=== PATIENT | female | born 1945 | race Caucasian/White ===

== ENCOUNTER → 2017-11-08 | Outpatient (CLI) | payer OTHER, MEDICARE ==
[2017-11-08 08:44] LABS: ADD MAN DIFF? NO
[2017-11-08 08:47] LABS: BASO # 0.1 x10^3/uL (0.0-0.2); BASO % 3 % (0-3); EOS # 0.6 x10^3/uL (0.0-0.7); EOS % 13 % (0-3); HEMATOCRIT 31.5 % (36.0-47.0); HEMOGLOBIN 10.1 g/dL (12.0-15.5); LYMPH # 1.2 x10^3/uL (1.0-4.8); LYMPH % 24 % (24-48); MEAN CORPUSCULAR HEMOGLOBIN 28 pg (25-35); MEAN CORPUSCULAR HGB CONC 32 g/dL (31-37); MEAN CORPUSCULAR VOLUME 88 fL (79-100); MONO # 0.6 x10^3/uL (0.0-1.1); MONO % 13 % (0-9); NEUT # 2.3 x10^3uL (1.8-7.7); NEUT % 47 % (31-73); PLATELET COUNT 276 x10^3/uL (140-400); RED BLOOD COUNT 3.59 x10^6/uL (3.50-5.40); WHITE BLOOD COUNT 4.9 x10^3/uL (4.0-11.0)
[2017-11-08 08:56] LABS: INR 1.1 (0.8-1.1); PARTIAL THROMBOPLASTIN TIME 27 SEC (24-38); PROTHROMBIN TIME PATIENT 13.6 SEC (11.7-14.0)
[2017-11-08 09:03] LABS: ALBUMIN 3.2 g/dL (3.4-5.0); ANION GAP 5 (6-14); BLOOD UREA NITROGEN 34 mg/dL (7-20); CALCIUM 8.4 mg/dL (8.5-10.1); CARBON DIOXIDE 29 mmol/L (21-32); CHLORIDE 107 mmol/L (98-107); CREATININE 1.2 mg/dL (0.6-1.0); GFR 43.9; GLUCOSE 91 mg/dL (70-99); POTASSIUM 4.7 mmol/L (3.5-5.1); SODIUM 141 mmol/L (136-145)
[2017-11-08 12:02] LABS: BILIRUBIN,URINE NEGATIVE (NEG); CLARITY,URINE CLEAR; COLOR,URINE YELLOW; GLUCOSE,URINE NEGATIVE (NEG); NITRITE,URINE NEGATIVE (NEG); PROTEIN,URINE NEGATIVE (NEG-TRACE)
[2017-11-08 12:08] LABS: BACTERIA,URINE FEW /HPF (0-FEW); RBC,URINE 0 /HPF (0-2); SQUAMOUS EPITHELIAL CELL,UR MOD /LPF; WBC,URINE OCC /HPF (0-4)
[2017-11-09 14:37] LABS: MRSA BY PCR Negative (Negative)
== END | disposition home or self-care (01) ==
LOC: SURGPAT 12:54
DX: Z01.818 Encounter for other preprocedural examination (principal); I10 Essential (primary) hypertension; K44.9 Diaphragmatic hernia without obstruction or gangrene; E78.00 Pure hypercholesterolemia, unspecified; K21.9 Gastro-esophageal reflux disease without esophagitis; E66.9 Obesity, unspecified
CPT/HCPCS: 36415; 71046; 80048; 81001; 82040; 85025; 85610; 85730; 87641; 93005

== ENCOUNTER → 2017-11-16 | Outpatient (CLI) | payer OTHER, MEDICARE | END | disposition home or self-care (01) | LOC: ECHO 13:48 | DX: R94.31 Abnormal electrocardiogram [ECG] [EKG] (principal); I51.7 Cardiomegaly; E78.00 Pure hypercholesterolemia, unspecified; E66.9 Obesity, unspecified; K21.9 Gastro-esophageal reflux disease without esophagitis; Z90.49 Acquired absence of other specified parts of digestive tract | CPT/HCPCS: 93306 ==

== ENCOUNTER 2017-11-22 10:00 | Inpatient (IN) | payer OTHER ==
[~2017-11-22] VITALS: Ht 162.6 cm; Wt 98.9 kg
[~2017-11-22 10:00] MED LIST: AMLO10TA6 PO; ASPI-482 PO; L.AC1CAP6 PO; MELO15TA23 PO; NAPR220T70 PO; OMEP20CA9 PO; OMEP20TA8 PO; OXYB5TAB7 PO; SIME180C9 PO; TRIA1CAP3 PO
[2017-12-17] MEDS ORDERED: LACT1CAP6 PO (07:24)
[2017-12-30] MEDS ORDERED: TRAM50TA PO (14:38)
[2017-12-30] MEDS ORDERED: DICL100G18 TP (14:38)
[2018-01-02] MEDS ORDERED: KETOROLAC 30MG VIAL 30 MG, ROPIVacaine 0.5% PF 60 ML, EPINEPHrine 0.5 MG in IV NORMAL S... IV PRN (20:00)
[2018-01-03] VITALS (8 sets, daily range): BP systolic 118–136; BP diastolic 48–59
[2018-01-03] MEDS ORDERED: ACETAMINOPHEN 500 MG TABLET PO PRN (06:00)
[2018-01-03] MEDS ORDERED: TRANEXAMIC ACID 1,000 MG in IV NS 50ML -- 1ST BAG INJ ONE (06:00)
[2018-01-03] MEDS ORDERED: MELOXICAM 7.5 MG TABLET PO PRN (06:00)
[2018-01-03] MEDS ORDERED: WARF-78 PO (06:40)
[2018-01-03] MEDS ORDERED: OXYB5TAB7 PO (06:45)
[2018-01-03] MEDS ORDERED: LIDOCAINE 1% PF 2 ML VIAL. ID PRN (07:00)
[2018-01-03] MEDS ORDERED: ceFAZolin 2GM PREMIX 2 GM/50 ML BAG IV ONE (07:00)
[2018-01-03] MEDS ORDERED: IV RINGERS,LACTATED 1000ML 1,000 ML IV SCH (07:00)
[2018-01-03] MEDS ORDERED: PROCHLORPERAZINE 10 MG/2 ML VIAL. IV PRN ×2 (07:00→07:45)
[2018-01-03] MEDS ORDERED: fentaNYL PF VIAL 100 MCG/2 ML VIAL IV PRN ×3 (07:00→07:45)
[2018-01-03] MEDS ORDERED: HYDROmorphone 2 MG/ML VIAL IV PRN (07:00)
[2018-01-03] MEDS ORDERED: MORPHINE SULFATE 2 MG/ML VIAL. IV PRN (07:00)
[2018-01-03] MEDS ORDERED: ONDANSETRON PF 4 MG/2 ML VIAL. IV PRN (07:00)
[2018-01-03] MEDS ORDERED: FAMOTIDINE 20 MG/2 ML VIAL ONE (07:13)
[2018-01-03] MEDS ORDERED: PROPOFOL 20 ML IV ONE (07:13)
[2018-01-03] MEDS ORDERED: ROCURONIUM 50 MG/5 ML VIAL. ONE (07:13)
[2018-01-03] MEDS ORDERED: ONDANSETRON PF 4 MG/2 ML VIAL. ONE (07:13)
[2018-01-03] MEDS ORDERED: fentaNYL PF VIAL 100 MCG/2 ML VIAL ONE (07:14)
[2018-01-03 07:18] LABS: PROTHROMBIN TIME PATIENT 14.2 SEC (11.7-14.0)
[2018-01-03] MEDS ORDERED: ZOLPIDEM 5 MG TABLET. PO PRN (07:45)
[2018-01-03] MEDS ORDERED: diphenhydrAMINE 50 MG/ML VIAL IV PRN (07:45)
[2018-01-03] MEDS ORDERED: 0.9 % SODIUM CHLORIDE 10 ML DISP.SYRIN. IV PRN (07:45)
[2018-01-03] MEDS ORDERED: oxyCODONE/APAP 5/325 1 TAB TABLET PO PRN (07:45)
[2018-01-03] MEDS ORDERED: CALCIUM CARBONATE 500 MG TAB.CHEW PO PRN (07:45)
[2018-01-03] MEDS ORDERED: traMADol 50 MG TABLET PO PRN (07:45)
[2018-01-03] MEDS ORDERED: HYDROcodone/APAP 7.5/325MG 1 TAB TABLET PO PRN (07:45)
[2018-01-03] MEDS ORDERED: oxyCODONE/APAP 7.5/325 1 TAB TABLET PO PRN (07:45)
[2018-01-03] MEDS ORDERED: METOCLOPRAMIDE HCL 10 MG/2 ML VIAL. IV PRN (07:45)
[2018-01-03] MEDS ORDERED: DEXTROSE 50% 25 GM / 50ML DISP.SYRIN. IV PRN (07:45)
[2018-01-03] MEDS ORDERED: HYDROcodone/APAP 10/325 1 TAB TABLET PO PRN (07:45)
[2018-01-03] MEDS ORDERED: PROCHLORPERAZINE 5 MG TABLET. PO PRN (07:45)
[2018-01-03] MEDS ORDERED: TRANEXAMIC ACID 1,000 MG in IV NS 50ML -- 2ND BAG INJ ONE (08:00)
[2018-01-03] MEDS: FERROUS SULFATE 325 MG TABLET. PO SCH ×2 (08:00→17:08)
[2018-01-03] MEDS ORDERED: hydrALAZINE 20 MG/ML VIAL. ONE (08:03)
[2018-01-03] MEDS ORDERED: GLYCOPYRROLATE 1 MG/5 ML VIAL. ONE (08:52)
[2018-01-03] MEDS ORDERED: NEOSTIGMINE METHYLSULFATE 5 MG/5 ML SYRINGE. ONE (08:52)
[2018-01-03] MEDS ORDERED: SEVOFLURANE > 120 MINUTES. IH ONE (09:10)
[2018-01-03] MEDS ORDERED: DEXAMETHASONE SOD PHOS 20 MG/5 ML VIAL. ONE (09:10)
[2018-01-03] MEDS: fentaNYL PF VIAL 100 MCG/2 ML VIAL IV PRN ×4 (09:50→10:26)
--- NOTE | 2018-01-03 10:12 | PDOC4 ---
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 Tourniquet time: 49 minutes Blood loss: 200 mL Competitions: None Findings: Advanced primary degenerative joint disease of left knee Components inserted: Cifuentes and nephew cobalt chrome femur, size 6, size 4 tibial baseplate, 9 mm thick constrained articular insert, 23 mm biconvex patella Reason for procedure: Patient is a very pleasant 72-year-old female right seen and evaluated in my outpatient orthopedic surgery clinic. Clinical radiographic examination were consistent with the above preoperative diagnosis and after discussion of the risks, benefits, and alternatives she elected proceed with surgery considering she had failed conservative therapies including strengthening, exercise, intra-articular injections. Description of procedure: Patient was greeted in the preoperative area by myself for the correct extremity was verified and marked. She was taken to the operative suite and antibiotics were started as she was brought back. Once in the operating room, transferred gently supine to the operating room table and had successful induction of a general anesthetic. She was secured to bed with all pressure points padded. We attached a nonsterile tourniquet and taped in place after conducted my examination under anesthesia which demonstrated range of motion from 3 to 90. We then attached a padded bump laterally at her hip and a padded foot rest to help maintain her leg at 90 passively. We then proceeded prep and drape left lower extremity in our usual sterile fashion including an Ioban Hammond. At this point I palpated and marked surface anatomy and ashley a line from my standard anterior midline skin incision. Extremity was exsanguinated with an Esmarch and tourniquet insufflated to 250 mmHg. I incised skin with a scalpel and dissected down to the extensor mechanism with electrocautery, identifying the quadriceps tendon, borders of the patellar tendon and patella. I then made my standard medial parapatellar arthrotomy and then performed my medial release with combination of Gallardo and electrocautery. After this, I bluntly dissected the fat pad off of the posterior aspect of the patellar tendon and protected this with an [place] while excised the fat pad. I then flexed the knee and took down her PCL and remnants of her ACL. I then gained entry to her distal femur with the drill and placed my long intramedullary guide and then pinned my distal femoral cutting block at the +2 position and made my distal femoral cut removing loose bony pieces. After this, removed this guide, size my for my femur and impacted this block into position referencing the Whitesides line and epicondylar axis. I then made my distal femoral cuts and delivered the bony pieces from the operative field and she had osteophytes posteriorly at her medial femoral condyle and I took care to take these down. I then used my extra medullary tibial cutting guide and pinned this into place and then made my proximal tibial cut, delivering the bony remnant was circumferentially electrocautery. I removed a couple loose bony pieces posteriorly. I then sized and pinned in place my size 4 tibial component and drilled and punched for the fins. I then placed my trial femoral component and reamed and punched for the cam portion. I then trialed the standard polyethylene 9 mm thick, she had full range of motion but I was not happy with her stability and therefore I went with the constrained poly-. I inspected her collaterals which were protected posterior retractors throughout this and these were intact. After this, I directed my attention to the constrained articular insert, she had full range of motion, 0- 140 and a knee that was stable to varus and valgus in extension and mid flexion. At this point I directed my attention to the patella and sized and reamed for a 23 biconvex patella. Her patella had excellent tracking. I then removed all trial components and thoroughly irrigated the bony surfaces and then proceeded to cement in place my tibial component followed by my femoral component and placed the trial polyethylene in between these, cement was allowed to polymerize with the leg in extension. The patellar button was secured and clamped in place with cement as well. After cement hardened I tested range of motion stability again and was happy with the 9 constrained, I removed the trial and then irrigated the operative field out again and made sure I didn't leave any cement behind. I then placed the polyethylene articular insert and ensure that it fully engaged. We then let tourniquet down and I cauterized couple bleeders. Prior to letting tourniquet down, I injected my periarticular mixture into the octaviano-incisional soft tissue envelope. I placed a 1/8 inch Hemovac exiting superolaterally from her knee. I then closed arthrotomy with simple interrupted #1 Vicryl with the exception of a figure-of- eight proximally. After this, inverted interrupted 20 in a multilayered fashion was used to close subcutaneous tissue followed by running 4-0 Monocryl in a subarticular fashion for skin. The leg was cleansed and dried and our cris wound dressing was applied. A soft wrap was then applied to her left lower extremity. After this, she is awake from anesthesia and transferred gently supine to the recovery room cart and taken to PACU in a stable and extubated condition. Postoperative plan is to admit her to the joint center for DVT and antibiotic prophylaxis. She will likely receive IV pain medicine. She will begin a rehabilitation. All counts were correct 2 prior to wound closure. No complications. GOOD CRUZ II, MD Jan 03, 2018 10:12
--- NOTE | 2018-01-03 10:39 | RAD ---
KNEE LEFT 2V History: POST OP LT KNEE REPLACEMENT Comparison: None. Findings: 2 views of the left knee are submitted. There is left total knee arthroplasty. There is drain in the soft tissues. Impression: 1. There is left total knee arthroplasty. Electronically signed by: Hunter Lamar MD (01/03/2018 10:36 AM) [facility]
[2018-01-03] MEDS: traMADol 50 MG TABLET PO PRN ×3 (13:13→20:30)
[2018-01-03] MEDS ORDERED: WARFARIN 7.5 MG TABLET. PO ONE (16:00)
[2018-01-03] MEDS: IV DEXTROSE 5 %-0.45 % NACL 1,000 ML IV SCH (17:08)
[2018-01-03] MEDS: CELECOXIB 100 MG CAPSULE. PO SCH (20:30)
[2018-01-03] MEDS: OXYBUTYNIN CHLORIDE 5 MG TABLET PO SCH (20:30)
[2018-01-03] MEDS ORDERED: INFLUENZA VAX SCREEN BY RX. MC ONE (21:00)
[2018-01-04] MEDS: traMADol 50 MG TABLET PO PRN ×5 (00:22→21:46)
[2018-01-04] MEDS: IV DEXTROSE 5 %-0.45 % NACL 1,000 ML IV SCH (00:24)
[2018-01-04 03:00] VITALS: BP 148/79
[2018-01-04 06:00] VITALS: BP 160/65
[2018-01-04] MEDS ORDERED: MAGNESIUM HYDROXIDE 2,400 MG/30 ML ORAL.SUSP. PO PRN (06:00)
[2018-01-04] MEDS: PANTOPRAZOLE 40 MG TABLET.DR. PO SCH (06:15)
[2018-01-04 07:30] LABS: HEMATOCRIT 28.3 % (36.0-47.0)
[2018-01-04 07:45] LABS: PROTHROMBIN TIME PATIENT 20.9 SEC (11.7-14.0)
[2018-01-04] MEDS: MULTIVITAMIN with MINERAL TABLET. PO SCH (08:54)
[2018-01-04] MEDS: CELECOXIB 100 MG CAPSULE. PO SCH ×2 (08:54→21:45)
[2018-01-04] MEDS: SENNOSIDES/DOCUSATE 8.6/50MG TABLET. PO SCH (08:54)
[2018-01-04] MEDS: OXYBUTYNIN CHLORIDE 5 MG TABLET PO SCH ×2 (08:55→21:45)
[2018-01-04] MEDS: SIMETHICONE 80 MG TAB.CHEW PO SCH (08:55)
[2018-01-04] MEDS: FERROUS SULFATE 325 MG TABLET. PO SCH ×2 (08:55→16:49)
[2018-01-04] MEDS: amLODIPine BESYLATE 10 MG TABLET PO SCH (08:57)
[2018-01-04] MEDS: TRIAMTERENE/HCTZ 37.5/25MG TABLET. PO SCH (08:57)
[2018-01-04 08:59] VITALS: BP 132/65
--- NOTE | 2018-01-04 09:22 | PDOC ---
ORTHO PROGRESS NOTES Subjective Her pain is tolerable. She is already asking about timing of her contralateral knee replacement. She denies any femoral sensation in her foot. Vitals Vital Signs Date Time Temp Pulse Resp B/P (MAP) Pulse Ox O2 Delivery O2 Flow Rate FiO2 01/04/18 08:59 73 20 132/65 (87) Room Air 01/04/18 07:00 95 01/04/18 06:00 98.1 98.1 01/04/18 00:22 2.0 Labs Laboratory Tests Test 01/03/18 06:35 01/04/18 07:10 Erythrocyte Sedimentation Rate 15 (0-25) Prothrombin Time 14.2 SEC (11.7-14.0) 20.9 SEC (11.7-14.0) Prothromb Time International Ratio 1.2 (0.8-1.1) 1.9 (0.8-1.1) Activated Partial Thromboplast Time 29 SEC (24-38) Hemoglobin 9.0 g/dL (12.0-15.5) Hematocrit 28.3 % (36.0-47.0) Mean Corpuscular Hemoglobin Concent 32 g/dL (31-37) Laboratory Tests Test 01/04/18 07:10 Hemoglobin 9.0 g/dL (12.0-15.5) Hematocrit 28.3 % (36.0-47.0) Mean Corpuscular Hemoglobin Concent 32 g/dL (31-37) Prothrombin Time 20.9 SEC (11.7-14.0) Prothromb Time International Ratio 1.9 (0.8-1.1) Notes She is awake and alert. Dressing is intact, minimal output from drain. Normal motor and sensation distally. Toes have good capillary refill. Assessment and Plan PT and OT today. I did discuss with her that given the amount of soft tissue work, I would prefer no flexion past 90. We will see how she progresses. Coumadin again today. VARUN CRUZ II, MD Jan 04, 2018 09:22
[2018-01-04] MEDS ORDERED: BISACODYL 10 MG SUPP.RECT. PR PRN (16:00)
[2018-01-04] MEDS ORDERED: WARFARIN 3 MG TABLET. PO ONE (16:00)
[2018-01-04 18:18] VITALS: BP 134/53
[2018-01-05] MEDS: traMADol 50 MG TABLET PO PRN ×5 (01:17→20:04)
[2018-01-05 05:37] VITALS: BP 147/62
[2018-01-05] MEDS: PANTOPRAZOLE 40 MG TABLET.DR. PO SCH (06:10)
[2018-01-05 06:57] LABS: HEMATOCRIT 28.4 % (36.0-47.0); HEMOGLOBIN 9.2 g/dL (12.0-15.5)
[2018-01-05 07:14] LABS: PROTHROMBIN TIME PATIENT 34.1 SEC (11.7-14.0)
--- NOTE | 2018-01-05 07:23 | PDOC ---
ORTHO PROGRESS NOTES Subjective Patient with no new complaints this morning. Post-op Day: 2 Procedure L TKA Vitals Vital Signs Date Time Temp Pulse Resp B/P (MAP) Pulse Ox O2 Delivery O2 Flow Rate FiO2 01/05/18 07:04 18 92 Room Air 01/05/18 05:37 99.1 67 147/62 (90) 99.1 Labs Laboratory Tests Test 01/04/18 07:10 01/05/18 06:30 Hemoglobin 9.0 g/dL (12.0-15.5) 9.2 g/dL (12.0-15.5) Hematocrit 28.3 % (36.0-47.0) 28.4 % (36.0-47.0) Mean Corpuscular Hemoglobin Concent 32 g/dL (31-37) 33 g/dL (31-37) Prothrombin Time 20.9 SEC (11.7-14.0) Prothromb Time International Ratio 1.9 (0.8-1.1) Laboratory Tests Test 01/05/18 06:30 Hemoglobin 9.2 g/dL (12.0-15.5) Hematocrit 28.4 % (36.0-47.0) Mean Corpuscular Hemoglobin Concent 33 g/dL (31-37) Assessment and Plan N/V intact distally dressing dry and intact continue PT LYNETTE QUEEN APRN Jan 05, 2018 07:23
[2018-01-05] MEDS: SIMETHICONE 80 MG TAB.CHEW PO SCH ×2 (08:00→08:42)
[2018-01-05] MEDS: MULTIVITAMIN with MINERAL TABLET. PO SCH (08:42)
[2018-01-05] MEDS: CELECOXIB 100 MG CAPSULE. PO SCH ×2 (08:42→20:41)
[2018-01-05] MEDS: SENNOSIDES/DOCUSATE 8.6/50MG TABLET. PO SCH (08:43)
[2018-01-05] MEDS: FERROUS SULFATE 325 MG TABLET. PO SCH ×2 (08:43→17:03)
[2018-01-05] MEDS: OXYBUTYNIN CHLORIDE 5 MG TABLET PO SCH ×2 (08:43→20:41)
[2018-01-05] MEDS: TRIAMTERENE/HCTZ 37.5/25MG TABLET. PO SCH (08:46)
[2018-01-05] MEDS: amLODIPine BESYLATE 10 MG TABLET PO SCH (08:46)
[2018-01-05] MEDS: ACETAMINOPHEN 325 MG TABLET. PO PRN ×2 (09:06→12:27)
[2018-01-05 18:30] VITALS: BP 138/59
[2018-01-06] MEDS: traMADol 50 MG TABLET PO PRN ×3 (02:16→12:09)
[2018-01-06 04:33] LABS: HEMATOCRIT 26.6 % (36.0-47.0); HEMOGLOBIN 8.7 g/dL (12.0-15.5)
[2018-01-06 04:40] LABS: PROTHROMBIN TIME PATIENT 33.2 SEC (11.7-14.0)
[2018-01-06 06:00] VITALS: BP 149/74
[2018-01-06] MEDS: PANTOPRAZOLE 40 MG TABLET.DR. PO SCH (06:53)
[2018-01-06] MEDS ORDERED: POLYETHYLENE GLYCOL 3350 17 GM PACKET. PO PRN (07:45)
--- NOTE | 2018-01-06 07:57 | DISCH ---
DISCHARGE INSTRUCTIONS Condition on Discharge Condition on Discharge: Stable Activity After Discharge Activity Instructions for Disc: Activity as tolerated Bathing Instructions: Shower-keep dressing dry Weight Bearing Status after Di: As tolerated Diet after Discharge Diet after Discharge: Regular Wound Incision Care Wound/Incision Care: Ice to area for comfort, Keep wound/cast CDI, Change dressing, Do not change dressing Other wound/incision instructi: leave dressing in place Contacting the DR. after DC Call your doctor for: Concerns you may have Follow-Up Follow up with: Juan Daniel in 2k VARUN CRUZ II, MD Jan 06, 2018 07:57
[2018-01-06 08:01] VITALS: BP 131/67
[2018-01-06] MEDS: FERROUS SULFATE 325 MG TABLET. PO SCH (08:04)
[2018-01-06] MEDS: CELECOXIB 100 MG CAPSULE. PO SCH (08:04)
[2018-01-06 08:05] VITALS: BP 131/67
[2018-01-06] MEDS: SENNOSIDES/DOCUSATE 8.6/50MG TABLET. PO SCH (08:05)
[2018-01-06] MEDS: amLODIPine BESYLATE 10 MG TABLET PO SCH (08:05)
[2018-01-06] MEDS: MULTIVITAMIN with MINERAL TABLET. PO SCH (08:05)
[2018-01-06] MEDS: OXYBUTYNIN CHLORIDE 5 MG TABLET PO SCH (08:05)
[2018-01-06] MEDS: TRIAMTERENE/HCTZ 37.5/25MG TABLET. PO SCH (08:05)
[2018-01-06] MEDS: SIMETHICONE 80 MG TAB.CHEW PO SCH (08:08)
--- NOTE | 2018-01-06 08:08 | PDOC ---
ORTHO PROGRESS NOTES Subjective Making progress with PT/OT pain controlled some abd fullness, +flatus, no N/V Vitals Vital Signs Date Time Temp Pulse Resp B/P (MAP) Pulse Ox O2 Delivery O2 Flow Rate FiO2 01/06/18 08:01 98.4 66 18 131/67 (88) 94 Room Air 98.4 Labs Laboratory Tests Test 01/05/18 06:30 01/06/18 04:05 Hemoglobin 9.2 g/dL (12.0-15.5) 8.7 g/dL (12.0-15.5) Hematocrit 28.4 % (36.0-47.0) 26.6 % (36.0-47.0) Mean Corpuscular Hemoglobin Concent 33 g/dL (31-37) 33 g/dL (31-37) Prothrombin Time 34.1 SEC (11.7-14.0) 33.2 SEC (11.7-14.0) Prothromb Time International Ratio 3.5 (0.8-1.1) 3.4 (0.8-1.1) Laboratory Tests Test 01/06/18 04:05 Hemoglobin 8.7 g/dL (12.0-15.5) Hematocrit 26.6 % (36.0-47.0) Mean Corpuscular Hemoglobin Concent 33 g/dL (31-37) Prothrombin Time 33.2 SEC (11.7-14.0) Prothromb Time International Ratio 3.4 (0.8-1.1) Notes A and A incision/dressing c/d/i remains NVI LLE Assessment and Plan home today, outpatient PT Coumadin, WBAT VARUN CRUZ II, MD Jan 06, 2018 08:08
--- NOTE | 2018-01-06 09:13 | PATHOLOGY ---
[facility] Accession Number: [id number] . 01 Material submitted: . LEFT KNEE TISSUE . 01 Clinician provided ICD-10: M17.12 . 01 Clinical history: . L knee OA, DJD . 02 Diagnosis: "Left knee tissue", total knee arthroplasty/joint resection: - Decalcified bone and articular cartilage with degenerative joint disease. - Synovium with reactive synovial hyperplasia. - Bone marrow with trilineage hematopoiesis. . (CLW:vjm;01/05/2018) AGA/01/06/2018 . 02 Electronically signed: . Karen Hearn MD, Pathologist NPI- [id number] . 01 Gross description: . The specimen is received in formalin, labeled "Joan Ornelas, left knee tissue" and consists of multiple fragments of bone including the tibial plateau and yellow soft tissue measuring 11.3 x 9.5 x 2.4 cm. Also present is a segment of prieto-brown and papillary soft tissue attached to bone which measures 3.0 x 1.8 cm. No meniscus is grossly identified and the articular surfaces show extensive eburnation measuring up to 3.0 cm. There are also multiple osteophytes present measuring up to 1.8 cm. Smasher sections are submitted as follows: . A1: Soft tissue A2: Eburnation and osteophyte following decalcification (SDY; 01/03/2018) SYU/SYU . 02 Pathologist provided ICD-10: M17.12, M67.262 . 02 CPT . 500021, 047888 Specimen Comment: A courtesy copy of this report has been sent to Specimen Comment: [phone], . Specimen Comment: Report sent to / DR EVANS Performed at: 01 [facility] [address] [id number] MD Tom Osman MD Phone: [phone] Performed at: 02 [facility] [address] [id number] MD Slade Osorio MD Phone: [phone]
--- NOTE | 2018-01-06 09:55 | PDOC3 ---
Discharge Summary Visit Information Date of Admission: Jan 03, 2018 Date of Discharge: Jan 06, 2018 Admitting Diagnosis: advanced left primary degenerative joint disease of knee Brief Hospital Course Allergies Allergies Coded Allergies Type Severity Reaction Last Updated Verified morphine Allergy Severe Shortness of Air 12/17/17 Yes latex Allergy Intermediate Rash 12/17/17 Yes nickel Adverse Reaction Intermediate Rash 12/17/17 Yes simvastatin Adverse Reaction Intermediate 12/17/17 Yes Vital Signs Vital Signs Date Time Temp Pulse Resp B/P (MAP) Pulse Ox O2 Delivery O2 Flow Rate FiO2 01/06/18 08:06 18 01/06/18 08:05 66 131/67 01/06/18 08:01 98.4 94 Room Air 98.4 Lab Results Laboratory Tests Test 01/05/18 06:30 01/06/18 04:05 Hemoglobin 9.2 g/dL (12.0-15.5) 8.7 g/dL (12.0-15.5) Hematocrit 28.4 % (36.0-47.0) 26.6 % (36.0-47.0) Mean Corpuscular Hemoglobin Concent 33 g/dL (31-37) 33 g/dL (31-37) Prothrombin Time 34.1 SEC (11.7-14.0) 33.2 SEC (11.7-14.0) Prothromb Time International Ratio 3.5 (0.8-1.1) 3.4 (0.8-1.1) Laboratory Tests Test 01/06/18 04:05 Hemoglobin 8.7 g/dL (12.0-15.5) Hematocrit 26.6 % (36.0-47.0) Mean Corpuscular Hemoglobin Concent 33 g/dL (31-37) Prothrombin Time 33.2 SEC (11.7-14.0) Prothromb Time International Ratio 3.4 (0.8-1.1) Brief Hospital Course Ms. Ornelas is a 72 old female who presented to my outpatient orthopedic surgery clinic with complaints of severe and progressive pain that failed conservative therapies including injections. We had a discussion of the risks, benefits, alternatives to total knee arthroplasty and she elected to proceed. She tolerated surgery well and recovered well from anesthesia in the PACU. She was then taken to the joint Center for care and observation. She did receive PT , OT, DVT and antibiotic prophylaxis. She recovered well from surgery and remained hemodynamically stable and afebrile throughout the hospitalization. Pain was controlled on oral pain medicine at the time of discharge. Good progress was made with therapy throughout the hospitalization, and activities of daily living were accomplished by the patient. The incision was clean dry and intact and the operative extremity had normal motor and sensation. She was having normal bowel and bladder function at the time of discharge. Discharge Information Condition at Discharge: Stable Follow Up: Weeks Disposition/Orders: D/C to Home Scheduled Amlodipine Besylate (Amlodipine Besylate) 10 Mg Tablet, 10 MG PO DAILY08 for blood pressure, (Reported) Entered as Reported by: EDYTA WRIGHT on 11/05/151724 Last Taken: Unknown Dose on 01/03/180 Last Action: Continued on 742 by GARRY CRUZ MD Meloxicam (Meloxicam) 15 Mg Tablet, 1 TAB PO DAILY08 for arthritis pain, #30 Ref 2 (Reported) Entered as Reported by: EDYTA WRIGHT on 11/05/151724 Last Taken: Unknown Dose on 01/03/18299 Last Action: HELD on 01/03/18742 by GARRY CRUZ MD Omeprazole (Omeprazole) 20 Mg Tablet.dr, 20 MG PO DAILY for stomach acid, ( Reported) Entered as Reported by: DARINEL MOSER on 11/08/17 1448 Last Taken: Unknown Dose on 01/03/18299 Last Action: Converted on 43 by GARRY CRUZ MD Oxybutynin Chloride (Oxybutynin Chloride) 5 Mg Tablet, 10 MG PO HS for frequency , (Reported) Entered as Reported by: EDYTA WRIGHT on 11/05/151724 Last Taken: Unknown Dose on 01/03/18 0300 Last Action: Continued on 742 by GARRY CRUZ MD Oxybutynin Chloride (Oxybutynin Chloride) 5 Mg Tablet, 1 TAB PO DAILY08 for frequency, #60 Ref 11 (Reported) Entered as Reported by: DUY BOO on 01/03/18 0645 Last Taken: Unknown Dose on 01/02/18 0800 Last Action: Continued on 742 by GARRY CRUZ MD Simethicone (Phazyme) 180 Mg Capsule, 180 MG PO DAILY08 for heartburn, (Reported ) Entered as Reported by: EDYTA WRIGHT on 11/05/15 1725 Last Taken: Unknown Dose on 01/02/18 Last Action: Converted on 01/03/18742 by GARRY CRUZ MD Triamterene/Hydrochlorothiazid (Triamterene-Hctz 37.5-25 Mg Cp) 1 Each Capsule, 1 CAP PO DAILY08 for blood pressure, #30 Ref 5 (Reported) Entered as Reported by: EDYTA WRIGHT on 11/05/151724 Last Taken: Unknown Dose on 01/03/18 0300 Last Action: Converted on 742 by GARRY CRUZ MD Scheduled PRN Tramadol Hcl (Tramadol Hcl) 50 Mg Tablet, 50 MG PO Q6HRS PRN for PAIN, (Reported ) Entered as Reported by: DARINEL MOSER on 12/30/17 1438 Last Taken: Unknown Dose on 01/03/18 0300 Last Action: Continued on 742 by GARRY CRUZ MD Miscellaneous Medications Diclofenac Sodium (Voltaren) 100 Gm Gel..gram., 100 GM TP for pain, (Reported) Entered as Reported by: DARINEL MOSER on 12/30/17 1438 Last Taken: Unknown Dose on 12/18/17 Last Action: HELD on 01/03/18742 by GARRY CRUZ MD Lactobacillus Acidophilus (Probiotic) 1 Each Capsule, 1 EACH PO for supplement, (Reported) Entered as Reported by: KIRIT LR on 12/17/17 0724 Last Taken: Unknown Dose on 01/02/18 Last Action: HELD on 01/03/18742 by GARRY CRUZ MD Discontinued Medications Warfarin Sodium (Coumadin) 5 Mg Tablet, 1 TAB PO ONCE, #90 Ref 1 (Reported) Entered as Reported by: DUY BOO on 01/03/18 0640 Last Taken: Unknown Dose on 01/02/18 1700 Last Action: HELD on 01/03/18742 by GARRY CRUZ MD Patient Instructions Patient Instructions She will be discharged home. Coumadin per pharmacy. Okay to weight-bear as tolerated. Wound care was discussed. Physical therapy will start tomorrow morning on an outpatient basis. She'll follow up with me in 2 weeks, sooner should a problem arise VARUN CRUZ II, MD Jan 06, 2018 09:55
[2018-01-06] MEDS ORDERED: WARF2TAB96 PO (10:59)
[2018-01-08] MEDS ORDERED: WARFARIN 2 MG TABLET. PO SCH (16:00)
== END 2018-01-06 14:55 | disposition home or self-care (01) | DRG 470 ==
LOC: OPSVCIP 01-03 05:51 → 4 SOUTHEST 01-03 10:52
PROVIDERS: ADMIT Orthopaedic Surgery Sports Medicine; ATTEND Orthopaedic Surgery Sports Medicine
PROC: 0SRD0J9 Replacement of Left Knee Joint with Synthetic Substitute, Cemented, Open Approach (ICD-10-PCS; principal; 2018-01-03 07:30)
DX: M17.12 Unilateral primary osteoarthritis, left knee (principal); Z88.8 Allergy status to other drugs, medicaments and biological substances; Z91.040 Latex allergy status; Z79.899 Other long term (current) drug therapy
CPT/HCPCS: 36415; 73560; 85014; 85018; 85610; 85651; 85730; 86850; 86870; 86880; 86900; 86901; 86902; 88305; 88311; A7015; C1713; J0171; J0360; J0690; J1100; J1885; J2405; J2704; J2710; J2795; J3010; J3490; J7030; J7120; S0028; 97110; 97116; 97150; 97530; 97535; C1769

== ENCOUNTER → 2018-05-09 | Outpatient (CLI) | payer OTHER ==
[2018-01-05 08:46] VITALS: BP 149/63
[~2018-05-09] MED LIST changes: +ACET325T9 PO; +DICL100G18 TP; +LACT1CAP6 PO; +MULT1TAB52 PO; +TRAM50TA PO; +WARF-78 PO; +WARF2TAB96 PO
[2018-05-09 11:45] LABS: BASO # 0.1 x10^3/uL (0.0-0.2); BASO % 2 % (0-3); EOS # 0.4 x10^3/uL (0.0-0.7); EOS % 9 % (0-3); HEMATOCRIT 29.7 % (36.0-47.0); HEMOGLOBIN 9.6 g/dL (12.0-15.5); LYMPH # 1.2 x10^3/uL (1.0-4.8); LYMPH % 26 % (24-48); MEAN CORPUSCULAR HEMOGLOBIN 26 pg (25-35); MEAN CORPUSCULAR HGB CONC 32 g/dL (31-37); MEAN CORPUSCULAR VOLUME 80 fL (79-100); MONO # 0.8 x10^3/uL (0.0-1.1); MONO % 17 % (0-9); NEUT # 2.2 x10^3uL (1.8-7.7); NEUT % 47 % (31-73); PLATELET COUNT 306 x10^3/uL (140-400); RED BLOOD COUNT 3.71 x10^6/uL (3.50-5.40); RED CELL DISTRIBUTION WIDTH 18.3 % (11.5-14.5); WHITE BLOOD COUNT 4.7 x10^3/uL (4.0-11.0)
[2018-05-09 11:51] LABS: BILIRUBIN,URINE NEGATIVE (NEG); CLARITY,URINE CLEAR; COLOR,URINE YELLOW; NITRITE,URINE NEGATIVE (NEG); PROTEIN,URINE NEGATIVE (NEG-TRACE)
[2018-05-09 11:55] LABS: ALBUMIN 3.5 g/dL (3.4-5.0); CALCIUM 8.7 mg/dL (8.5-10.1); CREATININE 1.2 mg/dL (0.6-1.0); GFR 43.9; POTASSIUM 4.2 mmol/L (3.5-5.1)
[2018-05-09 12:01] LABS: BACTERIA,URINE 0 /HPF (0-FEW); RBC,URINE 0 /HPF (0-2); SQUAMOUS EPITHELIAL CELL,UR FEW /LPF; WBC,URINE 0 /HPF (0-4)
[2018-05-09 12:11] LABS: PROTHROMBIN TIME PATIENT 14.5 SEC (11.7-14.0)
== END | disposition home or self-care (01) ==
LOC: SURGPAT 10:30
PROVIDERS: ATTEND Orthopaedic Surgery Sports Medicine
DX: Z01.818 Encounter for other preprocedural examination (principal); M17.11 Unilateral primary osteoarthritis, right knee
CPT/HCPCS: 36415; 80048; 81001; 82040; 85025; 85610; 85651; 85730; 87641